=== PATIENT | male | born 1940 | race Hispanic/Latino ===

== ENCOUNTER 2017-09-06 09:45 | Outpatient (CLI) | payer MEDICARE ==
[2017-09-06 10:30] LABS: Blood Urea Nitrogen 22 mg/dL (9-20)
--- NOTE | 2017-09-06 12:41 | Cat Scan Report ---
FINAL REPORT EXAM: CT CHEST W CON HISTORY: PULMONARY NODULE TECHNIQUE: CT examination of the chest after IV contrast PRIORS: None. FINDINGS: Normal cardiac size without pericardial effusion. Normal-appearing esophagus. No hilar mass or mediastinal adenopathy. Benign-appearing granulomatous calcifications are noted in the right hilum, mediastinum, spleen, and right lung. Calcified granulomatous nodule in posterior right upper lobe laterally. The visible pulmonary arteries are diffusely patent. Slight fusiform enlargement of the ascending thoracic aorta with maximum diameter of 4.3 cm. No evidence of aortic dissection. Normal caliber descending thoracic aorta. Slight calcified and noncalcified atherosclerotic plaque in the aorta. Smoothly marginated hypodense right and left hepatic lobe lesions are nonspecific and statistically most likely reflect cysts and/or hemangiomas. Nonspecific slight fullness of both adrenal glands may reflect mild hyperplasia. Slight diverticulosis splenic flexure. Widely scattered bilateral pulmonary emphysema with multifocal pneumatoceles and reticular scarring in both lower lobes. No pneumothorax, pleural effusion, or focal pulmonary consolidation. 2 mm nonspecific pulmonary nodule in the posterior lateral aspect of the lingula, series 3, image 69. IMPRESSION: 2 mm nonspecific pulmonary nodule in the lingula may reflect scarring related emphysema or noncalcified granuloma. Consider follow-up surveillance CT in 1 year to ensure stability Multifocal granulomatous calcification to include a calcified benign-appearing granulomatous nodule in the right upper lobe Slight fusiform enlargement of the ascending thoracic aorta with maximum 4.3 cm diameter Liver lesions statistically most likely to reflect cysts and/or hemangiomas Nonspecific slight fullness of both adrenal glands may reflect hyperplasia Slight diverticulosis splenic flexure Widely scattered bilateral pulmonary emphysema with reticular scarring
== END 2017-09-06 09:46 | disposition home or self-care (01) ==
LOC: CT 09:45
PROVIDERS: ATTEND Internal Medicine
DX: J43.9 Emphysema, unspecified (principal); J98.4 Other disorders of lung; K57.90 Diverticulosis of intestine, part unspecified, without perforation or abscess without bleeding; I70.0 Atherosclerosis of aorta; R91.1 Solitary pulmonary nodule
CPT/HCPCS: 36415; 71260; 82565; 84520; Q9967

== ENCOUNTER 2018-11-30 14:42 | Emergency (ER) | payer MEDICARE ==
--- NOTE | 2018-11-30 15:12 | Event Note ---
ED Screening Note Date of service: 11/30/18 Time: 15:10 ED Screening Note: 78 y/o female comes in for fall with head trauma. This initial assessment/diagnostic orders/clinical plan/treatment(s) is/are subject to change based on patients health status, clinical progression and re- assessment by fellow clinical providers in the ED. Further treatment and workup at subsequent clinical providers discretion. Patient/guardian urged not to elope from the ED as their condition may be serious if not clinically assessed and managed. Initial orders include:
[2018-11-30 15:37] LABS: Amorphous Crystals,Urine Few; Bilirubin,Urine NEG (Negative); Blood,Urine NEG (Negative); Color,Urine Yellow (Yellow); Mucus,Urine FEW /HPF; Protein,Urine <15 mg/dL mg/dL (Negative); Urobilinogen,Urine < 2.0 mg/dL (<2.0)
[2018-11-30 15:39] LABS: Basophils % (Auto) 0.5 % (0.0-1.8); Eosinophils # (Auto) 0.1 K/mm3 (0.0-0.4); Eosinophils % (Auto) 1.9 % (0.0-4.3); Hematocrit 42.7 % (35.5-45.6); Hemoglobin 14.9 gm/dl (11.8-15.2); Lymphocytes # (Auto) 1.6 K/mm3 (1.2-5.4); Lymphocytes % (Auto) 25.3 % (13.4-35.0); Mean Corpuscular HGB Conc 35 % (32-34); Mean Corpuscular Volume 99 fl (84-94); Monocytes # (Auto) 0.8 K/mm3 (0.0-0.8); Monocytes % (Auto) 12.3 % (0.0-7.3); Platelet Count 234 K/mm3 (140-440); Red Blood Count 4.32 M/mm3 (3.65-5.03); Red Cell Distribution Width 13.9 % (13.2-15.2)
[2018-11-30 16:06] LABS: Alanine Aminotransferase 15 units/L (7-56); Albumin 4.2 g/dL (3.9-5); BUN/Creatinine Ratio 20; Blood Urea Nitrogen 16 mg/dL (9-20); Calcium 9.6 mg/dL (8.4-10.2); Hemolysis Index 12
[2018-11-30] MEDS ORDERED: BOOSTRIX IM ONE (16:40)
--- NOTE | 2018-11-30 16:46 | Emergency Department Report ---
HPI - General Chief Complaint: Syncope Time Seen by Provider: 11/30/18 16:29 - HPI HPI: Room 26 The patient is a 78-year-old male presenting with a chief complaint of syncope. The patient states earlier today and got up and began walking down the hallway [place] suddenly lost consciousness. The patient says he fell to the ground and then immediately regained consciousness. Family was present and did not witness any seizure-like activity. Patient denies any preceding symptoms stating there is no chest pain, shortness of breath, headache, dizziness or palpitations. Patient states he now has a slight headache and neck pain in addition to pain al luis enrique his tailbone. Patient gives his pain a score of 4/10 Location: [See above] Duration: [See above] Quality: Headache Severity: 4/10 Modifying factors: [see above] Context: [see above] Mode of transportation: [not driving] ED Past Medical Hx - Past Medical History Additional medical history: Hypothyroidism, TREMORS HEART PROBLEMS, decreased hearing, hearing aids - Surgical History Past Surgical History?: No - Family History Family history: no significant - Social History Smoking Status: Current Every Day Smoker (1/2 pack per day) Substance Use Type: None ED Review of Systems ROS: Stated complaint: FALL Other details as noted in HPI Constitutional: no symptoms reported Eyes: denies: eye pain ENT: denies: throat pain Respiratory: denies: shortness of breath Cardiovascular: denies: chest pain, palpitations Endocrine: no symptoms reported Gastrointestinal: denies: abdominal pain, nausea, vomiting Genitourinary: denies: dysuria Musculoskeletal: arthralgia. denies: back pain Neurological: headache Physical Exam - Physical Exam Vital Signs: Vital Signs 11/30/18 11/30/18 11/30/18 14:58 15:25 15:30 Temperature 97.9 F Pulse Rate 71 60 Respiratory 18 25 H Rate Blood Pressure 132/69 94/62 O2 Sat by Pulse 95 96 96 Oximetry 11/30/18 11/30/18 15:45 16:00 Temperature Pulse Rate 59 L Respiratory 24 Rate Blood Pressure 90/54 90/54 O2 Sat by Pulse 94 94 Oximetry Physical Exam: GENERAL: The patient is well-developed well-nourished male sitting in chair not appearing to be in acute distress HEENT: Normocephalic. Linear laceration to the calvarium approximately 4 cm in length. Hemostatic. Extraocular motions are intact. Patient has moist mucous membranes. NECK: Supple. No meningitic signs are noted. There is no adenopathy noted. CHEST/LUNGS: Clear to auscultation. There is no respiratory distress noted. HEART/CARDIOVASCULAR: Regular. There is no tachycardia. There is no gallop rub or murmur. ABDOMEN: Abdomen is soft, nontender. Patient has normal bowel sounds. There is no abdominal distention. SKIN: Linear laceration to the calvarium approximately 4 cm in length. Hemostatic. There is no diaphoresis. NEURO: The patient is awake, alert, and oriented. The patient is cooperative. The patient has no focal neurologic deficits. The patient has normal speech. Cranial nerves II through XII grossly intact, no drift MUSCULOSKELETAL: There is tenderness to palpation of the axial cervical spine. There is no tenderness to palpation of the thoracic or lumbar spine. There is no limitation range of motion. ED Course Vital Signs 11/30/18 11/30/18 11/30/18 14:58 15:25 15:30 Temperature 97.9 F Pulse Rate 71 60 Respiratory 18 25 H Rate Blood Pressure 132/69 94/62 O2 Sat by Pulse 95 96 96 Oximetry 11/30/18 11/30/18 15:45 16:00 Temperature Pulse Rate 59 L Respiratory 24 Rate Blood Pressure 90/54 90/54 O2 Sat by Pulse 94 94 Oximetry - Laceration /Wound Repair Head Wound Location: head Wound Length (cm): 4 Wound's Depth, Shape: superficial Wound Explored: clean Irrigated w/ Saline (ccs): 500 Betadine Prep?: Yes Anesthesia: Lidocaine w/ Epi Volume Anesthetic (ccs): 5 Number of Sutures: 10 (Osgood) Layer Closure?: No Sterile Dressing Applied?: Yes ED Medical Decision Making - Lab Data Result diagrams: 11/30/18 15:18 11/30/18 15:18 Laboratory Tests 11/30/18 11/30/18 11/30/18 15:18 15:18 16:41 WBC 6.5 RBC 4.32 Hgb 14.9 Hct 42.7 MCV 99 H MCH 34 H MCHC 35 H RDW 13.9 Plt Count 234 Lymph % (Auto) 25.3 [place] % (Auto) 12.3 H Eos % (Auto) 1.9 Baso % (Auto) 0.5 Lymph # 1.6 [place] # 0.8 Eos # 0.1 Baso # 0.0 Seg Neutrophils % 60.0 Seg Neutrophils # 3.9 D-Dimer 3463.66 H Sodium 139 Potassium 4.5 Chloride 103.9 Carbon Dioxide 22 Anion Gap 18 BUN 16 Creatinine 0.8 Estimated GFR > 60 BUN/Creatinine Ratio 20 Glucose 105 H Calcium 9.6 Total Bilirubin 0.40 AST 19 ALT 15 Alkaline Phosphatase 106 Troponin T Total Protein 7.6 Albumin 4.2 Albumin/Globulin Ratio 1.2 Urine Color Urine Turbidity Urine pH Ur Specific Lee Urine Protein Urine Glucose (UA) Urine Ketones Urine Blood Urine Nitrite Urine Bilirubin Urine Urobilinogen Ur Leukocyte Esterase Urine WBC (Auto) Urine RBC (Auto) Amorphous Crystals Urine Mucus 11/30/18 11/30/18 16:41 Unknown WBC RBC Hgb Hct MCV MCH MCHC RDW Plt Count Lymph % (Auto) [place] % (Auto) Eos % (Auto) Baso % (Auto) Lymph # [place] # Eos # Baso # Seg Neutrophils % Seg Neutrophils # D-Dimer Sodium Potassium Chloride Carbon Dioxide Anion Gap BUN Creatinine Estimated GFR BUN/Creatinine Ratio Glucose Calcium Total Bilirubin AST ALT Alkaline Phosphatase Troponin T < 0.010 Total Protein Albumin Albumin/Globulin Ratio Urine Color Yellow Urine Turbidity Slightly-cloudy Urine pH 6.0 Ur Specific Lee 1.013 Urine Protein <15 mg/dl Urine Glucose (UA) Neg Urine Ketones Neg Urine Blood Neg Urine Nitrite Neg Urine Bilirubin Neg Urine Urobilinogen < 2.0 Ur Leukocyte Esterase Neg Urine WBC (Auto) 2.0 Urine RBC (Auto) 2.0 Amorphous Crystals Few Urine Mucus Few - EKG Data -: EKG Interpreted by Me EKG shows normal: sinus rhythm Rate: normal - EKG Data When compared to previous EKG there are: previous EKG unavailable Interpretation: nonspecific ST-T wave carlos enrique (biphasic T-wave in lead 3) - Radiology Data Radiology results: report reviewed (CT head), image reviewed (CT head, CT cervical spine, sacral x-ray) interpreted by me: Sacral x-ray-no acute fracture seen [facility] [address] [place] [address] Cat Scan Report Signed Patient: SAMEERA CASTILLO MR#: [id number] [id number] : 1940 Acct:[id number] Age/Sex: 78 / M ADM Date: 11/30/18 Loc: ED Attending Dr: Yaritza pedroza Physician: ELIAS SHELTON Date of Service: 11/30/18 Procedure(s): CT head/brain wo con Accession Number(s): [id number] cc: ELIAS SHELTON PROCEDURE: CT HEAD/BRAIN WO CON TECHNIQUE: Computerized tomography of the head was performed without contrast material. CT DOSE LENGTH PRODUCT: 1047.2 mGycm HISTORY: head trauma from fall ahs a laceration COMPARISONS: None . FINDINGS: Brain: There is no evidence of intracranial hemorrhage. No parenchymal hemorrhage is seen. No mass lesions or mass effect is identified. No abnormal extra-axial fluid collections or masses are seen. There is some decreased density seen in the periventricular white matter without mass effect. This is fairly symmetric and does not exhibit any mass effect consistent with gliosis probably on the basis of microvascular disease or white matter changes of aging. Ventricles: The ventricles, sulcal pattern and fissures are prominent consistent with atrophy. Bone Windows: No evidence of fracture. Paranasal sinuses: Visualized portions are clear.. Mastoid air cells: Clear. IMPRESSION: There is evidence of mild atrophy and gliosis. No acute abnormalities identified. No evidence of intracranial hemorrhage or skull fracture. This document is electronically signed by Handy Wolf MD., November 30 2018 04:58:59 PM ET Transcribed By: DFN Dictated By: HANDY WOLF MD Electronically Authenticated By: HANDY WOLF MD Signed Date/Time: 11/30/18 1700 DD/ 51 TD/TT: 11/30/181651 [facility] [address] [place] [address] Cat Scan Report Signed Patient: SAMEERA CASTILLO MR#: [id number] : 1940 Acct:[id number] Age/Sex: 78 / M ADM Date: 11/30/18 Loc: ED Attending Dr: Ordering Physician: MARIAH CHILDRESS MD Date of Service: 11/30/18 Procedure(s): CT cervical spine wo con Accession Number(s): [id number] cc: MARIAH CHILDRESS MD PROCEDURE: CT CERVICAL SPINE WO CON TECHNIQUE: Computerized tomography of the cervical spine was performed from the skull base to T1 without contrast material. CT DOSE LENGTH PRODUCT: 552.6 mGycm HISTORY: pain after syncopal episode COMPARISONS: None . FINDINGS: No fracture or subluxation is visualized. Prevertebral soft tissues appear normal. The posterior elements are intact. Mild to moderate facet arthritis visualized bilaterally. There is nonfusion of the posterior ring of C1, normal variant. Diffuse disc space narrowing with anterior and posterior osteophytic spurring visualized at C2-3 through the C6/C7 level. Posterior osteophytic spurs are largest at C3-4, C4-5 and C5-6 disc spaces. No focal disc herniations are identified. Posterior osteophytic spurs do obscure portions of the anterior epidural space. At C3-C4 this appears to be resting on the anterior surface of the cervical cord. I cannot exclude mild compression of the cord at this level. The neural foramen on the left at C6-C7 appears stenotic secondary to spurring from the uncovertebral joint. The neural foramen otherwise appear adequate. Calcifications are seen in the hernandez of the carotid arteries indicating atherosclerotic disease. IMPRESSION: No evidence of fracture or subluxation. Moderate degenerative disc disease present as described. Posterior osteophytic spurs at C3-C4 obscure the anterior epidural space may be resting on the anterior surface of the cord. I cannot exclude mild compression of the a nterior surface of the cord at this level. The neural foramen on the left at C6/C7 appears stenotic as described. Atherosclerosis carotid arteries. This document is electronically signed by Handy Wolf MD., November 30 2018 05:49:24 PM ET Transcribed By: DFN Dictated By: HANDY WOLF MD Electronically Authenticated By: HANDY WOLF MD Signed Date/Time: 11/30/181750 DD/ 24 TD/TT: 11/30/18 1725 [facility] [address] [place] [address] XRay Report Signed Patient: SAMEERA CASTILLO MR#: [id number] : 1940 Acct:[id number] Age/Sex: 78 / M ADM Date: 11/30/18 Loc: ED Attending Dr: Ordering Physician: MARIAH CHILDRESS MD Date of Service: 11/30/18 Procedure(s): XR spine sacrum/coccyx 2+V Accession Number(s): [id number] cc: MARIAH CHILDRESS MD Fluoro Time In Minutes: PROCEDURE: XR SPINE SACRUM/COCCYX 2+V TECHNIQUE: Sacrum and coccyx HISTORY: pain after fall COMPARISONS: FINDINGS: Sacrum and coccyx maint ain normal contour. No acute fracture is identified. SI joints are unremarkable. No focal bony lesions are seen. IMPRESSION: Negative sacrum and coccyx series. This document is electronically signed by Frandy Bustos MD., November 30 2018 05:21:52 PM ET Transcribed By: [facility] Dictated By: DUNG BUSTOS MD Electronically Authenticated By: DUNG BUSTOS MD Signed Date/Time: 11/30/181723 DD/ 07 TD/TT: 11/30/181707 [facility] [address] [place] [address] Cat Scan Report Signed Patient: SAMEERA CASTILLO MR#: [id number] : 1940 Acct:[id number] Age/Sex: 78 / M ADM Date: 11/30/18 Loc: ED Attending Dr: Ordering Physician: MARIAH CHILDRESS MD Date of Service: 11/30/18 Procedure(s): CT angio chest Accession Number(s): [id number] cc: MARIAH CHILDRESS MD PROCEDURE: CT ANGIO CHEST TECHNIQUE: Computerized tomographic angiography of the chest was performed after the IV injection of iodinated nonionic contrast including image processing. The image data was postprocessed using 2-dimensional multiplanar ref ormatted (MPR) and 3-dimensional (MIP and/or volume rendered) techniques. Automated exposure control, adjustment of mA and/or kV according to patient size, or iterative reconstruction dose optimization techniques were utilized. CT DOSE LENGTH PRODUCT: 533.3 mGycm HISTORY: syncope COMPARISONS: None . FINDINGS: Heart and pericardium: There is left ventricular wall thickening Thoracic aorta: Normal. Pulmonary vasculature: Normal. No filling defect identified within the central pulmonary vasculature to suggest presence of acute pulmonary embolus Lymph nodes: No enlarged thoracic lymph nodes. Lungs: There is advanced interstitial lung disease. Multiple cystic changes throughout the lungs with fib rotic change and pulmonary bulla identified with a "honeycombing" appearance there is a peripheral predominance. No confluent infiltrate identified. Noted is a calcified granuloma in the right upper lobe Pleural space: No effusion, thickening, or pneumothorax. Musculoskeletal structures: No significant abnormality. Upper abdominal structures: No significant abnormality. 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 This document is electronically signed by Frandy Bustos MD., November 30 2018 07:39:19 PM ET Transcribed By: LISA Dictated By: DUNG BUSTOS MD Electronically Authenticated By: DUNG BUSTOS MD Signed Date/Time: 11/30/181940 DD/ 58 TD/TT: 11/30/181899 - Medical Decision Making Discussed with the patient and family at length my concern for his presentation and my recommendation he be admitted to the hospital as not all dangerous causes of syncope or caught in the ED. Patient verbalized understanding but states he does not wish to be admitted to the hospital. Patient verbalized understanding of increased morbidity and/or mortality should he leave the hospital AGAINST MEDICAL ADVICE. - Differential Diagnosis syncope, dysrhythmia, ACS, PE Critical care attestation.: If time is entered above; I have spent that time in minutes in the direct care of this critically ill patient, excluding procedure time. ED Disposition Clinical Impression: Syncope, Scalp laceration Disposition: DC-07 LEFT AGAINST MED ADVICE Is pt being admited?: No Does the pt Need Aspirin: Yes Condition: Undetermined Instructions: Syncope (ED) Referrals: TERRENCE ANTONYREDDING MD CARROLL [Primary Care Provider] - 3-5 Days Time of Disposition: 19:51 (patient leaving AMA)
--- NOTE | 2018-11-30 17:00 | Cat Scan Report ---
PROCEDURE: CT HEAD/BRAIN WO CON TECHNIQUE: Computerized tomography of the head was performed without contrast material. CT DOSE LENGTH PRODUCT: 1047.2 mGycm HISTORY: head trauma from fall ahs a laceration COMPARISONS: None . FINDINGS: Brain: There is no evidence of intracranial hemorrhage. No parenchymal hemorrhage is seen. No mass lesions or mass effect is identified. No abnormal extra-axial fluid collections or masses are seen. There is some decreased density seen in the periventricular white matter without mass effect. This i s fairly symmetric and does not exhibit any mass effect consistent with gliosis probably on the basis of microvascular disease or white matter changes of aging. Ventricles: The ventricles, sulcal pattern and fissures are prominent consistent with atrophy. Bone Windows: No evidence of fracture. Paranasal sinuses: Visualized portions are clear.. Mastoid air cells: Clear. IMPRESSION: There is evidence of mild atrophy and gliosis. No acute abnormalities identified. No evidence of intr acranial hemorrhage or skull fracture. This document is electronically signed by Handy Collins MD., November 30 2018 04:58:59 PM ET
--- NOTE | 2018-11-30 17:24 | XRay Report ---
PROCEDURE: XR SPINE SACRUM/COCCYX 2+V TECHNIQUE: Sacrum and coccyx HISTORY: pain after fall COMPARISONS: FINDINGS: Sacrum and coccyx maintain normal contour. No acute fracture is identified. SI joints are unremarkabl e. No focal bony lesions are seen. IMPRESSION: Negative sacrum and coccyx series. This document is electronically signed by Frandy Hill MD., November 30 2018 05:21:52 PM ET
[2018-11-30] MEDS ORDERED: NACL 0.9% 500 ML IR ONE (17:30)
[2018-11-30] MEDS ORDERED: XYLOCAINE 1% 20 mL ONE (17:31)
[2018-11-30] MEDS ORDERED: XYLOCAINE 2%/ EPI 1:200,000 INFILTRATI ONE (17:38)
--- NOTE | 2018-11-30 17:51 | Cat Scan Report ---
PROCEDURE: CT CERVICAL SPINE WO CON TECHNIQUE: Computerized tomography of the cervical spine was performed from the skull base to T1 wit hout contrast material. CT DOSE LENGTH PRODUCT: 552.6 mGycm HISTORY: pain after syncopal episode COMPARISONS: None . FINDINGS: No fracture or subluxation is visualized. Prevertebral soft tissues appear normal. The posterior [place] ents are intact. Mild to moderate facet arthritis visualized bilaterally. There is nonfusion of the p osterior ring of C1, normal variant. Diffuse disc space narrowing with anterior and posterior osteophytic spurring visualized at C2-3 thro ugh the C6/C7 level. Posterior osteophytic spurs are largest at C3-4, C4-5 and C5-6 disc spaces. No f ocal disc herniations are identified. Posterior osteophytic spurs do obscure portions of the anterior epidural space. At C3-C4 this appears to be resting on the anterior surface of the cervical cord. I cannot exclude mild compression of the cord at this level. The neural foramen on the left at C6-C7 appears stenotic secondary to spurring from the uncovertebral joint. The neural foramen otherwise appear adequate. Calcifications are seen in the hernandez of the carotid arteries indicating atherosclerotic disease. IMPRESSION: No evidence of fracture or subluxation. Moderate degenerative disc disease present as described. Posterior osteophytic spurs at C3-C4 obscure the anterior epidural space may be resting on the anterior surface of the cord. I cannot exclude mil d compression of the anterior surface of the cord at this level. The neural foramen on the left at C6/C7 appears stenotic as described. Atherosclerosis carotid arteries. This document is electronically signed by Handy Collins MD., November 30 2018 05:49:24 PM ET
--- NOTE | 2018-11-30 19:41 | Cat Scan Report ---
PROCEDURE: CT ANGIO CHEST TECHNIQUE: Computerized tomographic angiography of the chest was performed after the IV injection of iodinated nonionic contrast including image processing. The image data was postprocessed using 2-di mensional multiplanar reformatted (MPR) and 3-dimensional (MIP and/or volume rendered) techniques. Au tomated exposure control, adjustment of mA and/or kV according to patient size, or iterative reconstr uction dose optimization techniques were utilized. CT DOSE LENGTH PRODUCT: 533.3 mGycm HISTORY: syncope COMPARISONS: None . FINDINGS: Heart and pericardium: There is left ventricular wall thickening Thoracic aorta: Normal. Pulmonary vasculature: Normal. No filling defect identified within the central pulmonary vasculature to suggest presence of acute pulmonary embolus Lymph nodes: No enlarged thoracic lymph nodes. Lungs: There is advanced interstitial lung disease. Multiple cystic changes throughout the lungs with fibrotic change and pulmonary bulla identified with a "honeycombing" appearance there is a periphera l predominance. No confluent infiltrate identified. Noted is a calcified granuloma in the right upper lobe Pleural space: No effusion, thickening, or pneumothorax. Musculoskeletal structures: No significant abnormality. Upper abdominal structures: No significant abnormality. 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 This document is electronically signed by Frandy Hill MD., November 30 2018 07:39:19 PM ET
[2018-11-30] MEDS ORDERED: ASPIRIN PO ONE (19:54)
[2018-11-30] MEDS ORDERED: ANTIBIOTIC OINT TP ONE (20:00)
[2018-11-30 20:57] VITALS: BP 135/85
== END 2018-11-30 20:05 | disposition left against medical advice (07) ==
LOC: ED 14:42
DX: S01.01XA Laceration without foreign body of scalp, initial encounter (principal); E03.9 Hypothyroidism, unspecified; F17.200 Nicotine dependence, unspecified, uncomplicated; W18.30XA Fall on same level, unspecified, initial encounter; Y93.89 Activity, other specified; Y92.89 Other specified places as the place of occurrence of the external cause; Y99.8 Other external cause status
CPT/HCPCS: 12002; 36415; 70450; 71275; 72125; 72220; 80053; 81001; 84484; 85025; 85379; 90471; 90715; 93005; 93010; 99284; Q9967